=== PATIENT | male | born 1945 | race Caucasian/White ===

== ENCOUNTER 2025-04-23 19:58 | Emergency (ER) | payer MEDICARE, BC, SELFPAY ==
[2025-04-23 20:02] VITALS: BP 158/83; BMI 29.2
--- NOTE | 2025-04-23 21:09 | ED.GENMED ---
History of Present Illness
General
Chief Complaint: Swallowing Problem
Source: patient
Exam Limitations: none
Time Seen by Provider: 04/23/25 20:47
History of Present Illness
History of Present Illness:
79-year-old male presents via EMS after having difficulty swallowing while eating rice and dumplings. He states he felt like something was lodged in his throat and everything was coming back up. He vomited 5 or 6 times. Since being here in the
emergency room he states that sensation has resolved. There is no associated headache or weakness one-sided. He felt as though he can initiate the swallowing mechanism but was unable to mechanically get the food or drink down. This seems to have
happened similarly in the past when he has had similar food. He has been recommended in the past to receive an endoscopy but for various reasons, hasn't been able to set one up. He currently denies chest pain or shortness of breath. No fever.
There is no rash associated with this. No other complaints
Phy Exam
Physical Exam
Physical Exam:
General: Well-appearing male no acute respiratory distress
HEENT: Normal cephalic atraumatic posterior pharynx is patent uvula midline tongue is symmetric no trismus or drooling neck is supple
Heart: Regular rate and rhythm
Lungs: Clear no wheeze
Abdomen is soft nontender
Course
Vital Signs
Initial and Last Documented VS:
Initial Vital Signs
Temp Pulse Resp BP Pulse Ox
97.9 F 55 12 158/83 100
04/23/25 20:02 04/23/25 20:02 04/23/25 20:02 04/23/25 20:02 04/23/25 20:02
Last Documented Vital Signs
Temp Pulse Resp BP Pulse Ox
97.9 F 55 12 158/83 100
04/23/25 20:02 04/23/25 20:02 04/23/25 20:02 04/23/25 20:02 04/23/25 21:11
MDM/Problems Addressed
Differential Diagnosis Includes:
Patient had what sounds like esophageal food obstruction that resolved on its own. He is now able to drink water. There is no neurologic deficit on exam. Question possible allergy mediated process as it seems to happen with food. Currently
he is drinking water. Will try applesauce.
*Pulse Oximetry
SaO2: 100
Oxygen Mode of Delivery: Room air
Patient hypoxic: no
*Critical Care Note
Total Time (30-74mins, 75-104mins- exclusive of procedures): Not Applicable
Update Note
Update Note:
Patient tolerating applesauce and crackers and oral fluid. No further throat discomfort or foreign body sensation. I suspect he had a food impaction that resolved. Recommended follow-up with GI
ED Attending Note
-
Portions of this chart may have been created with voice recognition software.� Occasional wrong word or��sound alike� substitutions may have occurred due to the inherent limitations of voice recognition software.
Discharge Plan
Departure
Patient Disposition: Home (Routine Discharge)
Date of Disposition: 04/23/25
Time of Disposition: 22:08
Patient with high blood pressure during this ER visit?: No
Discharge Problem:
Esophageal obstruction due to food impaction
Instructions: Food Obstruction
Referrals:
NONE,* [Family Provider, Internal Medicine]
Chris Melendez MD [Active, Gastroenterology]
Activity Restrictions/Additional Instructions:
Eat small bites of food and drink plenty of water when you eat. Return here if needed otherwise follow-up with GI
Interventions
Interventions:
*General Assessment Last Done: 04/23/25 20:02
*Neglect/Abuse Screening Last Done: 04/23/25 20:02
*ED- Fall Risk Assessment Last Done: 04/23/25 20:02
*ED COVID-19 Vaccine History Last Done: 04/23/25 20:02
*ED Influenza Vaccine History Last Done: 04/23/25 20:02
Discharge Date and Time
Print Language: MONEGASQUE
== END 2025-04-23 22:44 | disposition home or self-care (01) ==
LOC: EMR 19:58
PROVIDERS: EMERGENCY PHYSICIAN Emergency Medicine
DX: T18.128A Food in esophagus causing other injury, initial encounter (principal); W44.F3XA Food entering into or through a natural orifice, initial encounter
CPT/HCPCS: 99283